=== PATIENT | female | born 1940 | race Caucasian/White ===

== ENCOUNTER → 2016-10-25 | Outpatient (CLI) | payer MEDICARE ==
[~2016-10-25] MED LIST: ALPR.25T PO; ALPR0.257 PO; ASPI-158 PO; ASPI-894 PO; ASPI81TA55 PO; CHOL10002 PO; CHOL200044 PO; DOCU100C8 PO; FLUT9.9S NSEACH; LSNP20T PO; MELA3TAB44 PO; METO-270 PO; MTP50T PO; MULT-955 PO; NITR100C PO; NITR25OR3 PO; NITR50CA PO; ONDAN4ODT PO; PRV20T PO; RANI150T15 PO; SUCR1TAB29 PO
--- NOTE | 2016-10-25 09:49 | Diagnostic Imaging Report ---
INDICATION: Pneumonia. Comparison study: Chest from 10/12/2016. FINDINGS: Frontal and lateral views of the chest demonstrate the lungs to be clear. The heart size and vascularity are normal. 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 Surgical clips are present in the left axilla. IMPRESSION: There are no acute findings. Dictated by: Dictated on workstation # [id number]
== END ==
LOC: RAD 09:10
PROVIDERS: ATTEND Family Medicine
DX: J18.9 Pneumonia, unspecified organism (principal)
CPT/HCPCS: 71020